=== PATIENT | female | born 1995 | race Caucasian/White ===

== ENCOUNTER 2021-05-28 17:06 | Observation (INO) | payer MEDICAID, SELFPAY ==
[2021-05-28 17:29] VITALS: BP 132/78; PULSE 125; RESP 18; TEMP 39.3; O2SAT 98
--- NOTE | 2021-05-28 17:45 | DI.RAD_ITS ---
Exam(s) XR PORTABLE CHEST AP EXAM: XR PORTABLE CHEST AP CLINICAL HISTORY: fever. TECHNIQUE: 2D digital imaging was performed. COMPARISON: No exams were available for comparison FINDINGS: Heart size is normal. The mediastinum is not widened. Lungs are clear. No infiltrates nor obvious pleural effusions. IMPRESSION: No acute pulmonary findings on this single AP portable view of the chest. DATA REPOSITORY: RADIATION DOSE DELIVERED: All CT scans at this facility use at least one of these dose optimization techniques: automated exposure control; mA and/or kV adjustment per patient size (includes targeted e xams where dose is matched to clinical indication); or iterative reconstruction.
[2021-05-28] MEDS: Normal Saline 1,000 ML 1000 ML IV ×2 (17:55→19:57)
[2021-05-28] MEDS: Acetaminophen 500 MG TAB 1000 MG PO (18:00)
[2021-05-28 18:14] LABS: Source Nasal/Nares
[2021-05-28 18:33] LABS: Lactate 1.1 mmol/L (0.6-1.4)
[2021-05-28 18:52] LABS: Bilirubin Negative (Negative); Blood Trace-intact (Negative); Clarity Cloudy (Clear); Glucose Negative (Negative); Ketones 40 mg/dL (Negative); Leukocyte Esterase Large (Negative); Nitrite Positive (Negative)
[2021-05-28 18:57] LABS: ALT 16 U/L (14-59); AST 11 U/L (15-37); Albumin 3.9 g/dL (3.4-5.0); Alkaline Phosphatase 87 U/L (46-116); Anion Gap 15.2 mmol/L (3-11); BUN 10 mg/dL (7-18); Bilirubin, Total 0.6 mg/dL (0.2-1.0); CO2 21.8 mmol/L (21.0-32.0); CREATININE 1.1 mg/dL (0.55-1.02); Chloride 100 mmol/L (98-107); Glucose 113 mg/dL (74-106); Magnesium 1.7 mg/dL (1.8-2.4); Potassium 3.2 mmol/L (3.5-5.1); Sodium 137 mmol/L (136-145); Total Protein 8.1 g/dL (6.4-8.2)
[2021-05-28 18:58] LABS: HCG Quant, Pregnancy < 1 mIU/mL (1-3)
[2021-05-28 19:05] LABS: COVID-19 PCR Negative (Negative)
[2021-05-28 19:11] LABS: Abs Immature Grans 0.09 10^3/uL (0.0-0.06); Absolute Basophil Count 0.04 10^3/uL (0.0-0.2); Absolute Lymphocyte Count 1.44 10^3/uL (1.2-3.4); Absolute Monocyte Count 2.04 10^3/uL (0.1-0.8); Absolute Neutrophil Count 15.14 10^3/uL (1.2-6.7); Basophils % 0.2; HCT 42.2 % (36.0-46.0); HGB 13.2 g/dL (11.2-15.7); Immature Grans % 0.5; Lymphocytes % 7.7; MCH 29.1 pg (27.0-33.0); MCHC 31.3 % (32.0-36.0); MCV 93.2 fL (80-95); MPV 9.9 fL (8.0-11.0); Monocytes % 10.9; Neutrophils % 80.7; Nucleated RBC 0 %; Platelet Count 275 10^3/uL (130-400); RBC 4.53 10^6/uL (3.93-5.22); RDW 12.1 % (11.7-14.6); RDW-SD 41.8 fL; WBC 18.76 10^3/uL (4.4-10.8)
[2021-05-28 19:14] LABS: Epithelial Cells Many HPF (Negative); WBC >50 HPF (0-5)
[2021-05-28 19:15] LABS: Bacteria Packed HPF (Negative); C & S Indicated? No/Sq. Contamination
--- NOTE | 2021-05-28 19:15 | ED.GENADUL_ITS ---
Discharge Plan Disposition Patient Disposition: [facility] INPATIENT Condition: Stable Discharge Details Clinical Impression: Pyelonephritis, Fever, Nausea and vomiting Admit Date/Time: 05/28/21 20:28 Admit Provider: Masood Souza Attending Provider: Masood Souza Primary Care Provider: Unknown,Unknown ED Provider: Yvrose Manzo Discharge Data Discharge Date/Time-TO BE ENTERED AT DEPARTURE: 05/28/21 21:05 Medical Decision Making <HEBER Clinton - Last Filed: 05/28/21 22:39> Given patient's recent miscarriage, I did call MEDICARE INSURANCE SPECIALIST to evaluate patient for possible endometritis, Dr. Shetty presented to the emergency room for exam She does not feel her exam is consistent with endometritis at this time Quant is negative Urinalysis is positive for infection, given temperature of 102, I suspect patient, pyelonephritis with low back pain Declines risk of sexually transmitted disease No indication for CT imaging at this time Ultrasound unavailable Please see Dr. Shetty's documentation regarding pelvic exam Initiated on ceftriaxone 2 g IV Leukocytosis, 18,000, tachycardia, 125, and first night patient positive sepsis. She is agreeable to admission Concern regarding sending patient home multifactorial including that of nausea and vomiting with persistent nausea, will repeat antiemetics Given 2 L of fluids for anion gap likely dehydration Potassium 3.2, supplemented with IV potassium patient unable to tolerate p.o. Chest x-ray does not show evidence of infectious etiology of the symptoms Medical Records Medical records reviewed: Yes I reviewed the patient's medical records. Lab Data Lab results reviewed: Yes I reviewed the patient's lab results. <Jose David Corrigan MD - Last Filed: 05/31/21 15:13> Patient seen, examined, and discussed with HEBER Manzo. I agree with treatment plan as discussed/documented. HPI <HEBER Clinton - Last Filed: 05/28/21 22:39> General Mode of arrival: ambulatory . Date/Time Provider Initiated Documentation: 05/28/21 17:19 . Limitations to Documentation: no limitations . Information obtained by: patient . HPI Narrative: This pleasant 26-year-old female presents with fever, chills, nausea, vomiting. Patient is status Spontaneous on 19 May where she was managed at [facility]. She reportedly received methotrexate and past all products of conception. She states that she had an IUD placed subsequently with confirmation via ultrasound. She states but yesterday evening she started having chills, nausea, vomiting. She also has diffuse myalgias. She states her symptoms came on abruptly. She denies any known sick contacts. She denies any cough, chest pain, shortness of breath. She had mild sore throat. Her boyfriend reportedly had strep throat last week. She denies any stiff neck or headache. She states she has some lower abdominal cramping that is exacerbated with walking. She denies any abnormal vaginal discharge. She is sexually active and monogamous with her . She denies any rashes or lesions. She denies any tick bites. She denies urinary frequency or burning. She does report some low back pain. Related Data Home Medications Medication Instructions Recorded Confirmed venlafaxine 50 mg PO DAILY 05/28/21 05/28/21 cefpodoxime 200 mg PO BID #10 tab 05/30/21 Previous Rx's Medication Instructions Recorded cefpodoxime 200 mg PO BID #10 tab 05/30/21 Allergies Allergy/AdvReac Type Severity Reaction Status Date / Time bupropion [From Wellbutrin] Allergy Hives Unverified 05/28/21 17:32 General Stated Complaint: Fever STEVEN: 3 Review of Systems <HEBER Clinton - Last Filed: 05/28/21 22:39> All systems reviewed & are unremarkable except as noted in HPI and below PFSH <HEBER Clinton - Last Filed: 05/28/21 22:39> 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 Improved symptoms with venlafaxine History of 1 spontaneous 05/20/2021. Rx with vaginal misoprostol. No complications. Social History Smoking/Tobacco Use Status: Former Tobacco Use Smoking risk assessment performed?: Yes Alcohol Intake: never Substance use type: does not use Household members: significant other and other Details: Ruslan x1.5 years Number of Children: 0 current occupation: Unemployed. Begins [employer] 06/01/2021 Do you feel safe at home: Yes Do you feel safe in your relationship?: Yes History History 1 Para 0 Hx # Term Pregnancies Multiple births Hx # Pregnancies Ectopic pregnancies AB induced Hx Number of Living Children 0 AB spontaneous 1 Exam <HEBER Clinton - Last Filed: 05/28/21 22:39> Const General: cooperative and ill appearing Eyes Sclera: sclerae normal Neck Other: No meningismus Resp Effort & Inspection: normal respiratory effort Auscultation: clear to auscultation bilaterally Cardio Other: Tachycardic, regular rhythm, no murmur GI Other: Mild lower abdominal tenderness, no rebound or guarding, no CVA tenderness Skin General skin exam: no rashes or lesions noted Neuro General: patient alert and patient oriented x3 Extrem Other: No calf swelling or tenderness appreciated Course <HEBER Clinton - Last Filed: 05/28/21 22:39> Vital Signs Vital signs: Vital Signs Temperature 39.3 C H 05/28/21 17:29 Pulse 125 H 05/28/21 17:29 Respiratory Rate 18 05/28/21 17:29 Blood Pressure 132/78 05/28/21 17:29 Pulse Oximetry 98 05/28/21 17:29 Temperature 39.3 C H 05/28/21 17:29 Temperature Source Oral 05/28/21 17:29 Pulse 125 H 05/28/21 17:29 Respiratory Rate 18 05/28/21 17:29 Respiratory Effort Non-Labored 05/28/21 17:35 Blood Pressure 132/78 05/28/21 17:29 Blood Pressure Position Sitting 05/28/21 17:29 Pulse Oximetry 98 05/28/21 17:29 Oxygen Delivery Method Room Air 05/28/21 17:29 Oxygen Flow Rate 0 05/28/21 17:29 Pain Level 8 05/28/21 17:29 Lab/Test Results Lab/Test Results: 05/28/21 18:58 Blood Blood Culture - Pending 05/28/21 18:50 Tonsil - Left Group A Streptococcus Culture - Pending 05/28/21 18:20 Blood Blood Culture - Pending Laboratory Tests Range/Units 05/28/21 05/28/21 05/28/21 18:12 18:20 18:20 WBC RBC Hgb Hct MCV MCH MCHC RDW Plt Count MPV Immature Gran % Neutrophils % Band Neutrophils % Lymphocytes % Atypical Lymphs % Monocytes % Eosinophils % Basophils % Metamyelocytes % Myelocytes % Promyelocytes % Other Cells % Nucleated RBC % Absolute Neutrophils Absolute Lymphocytes Absolute Monocytes Absolute Eosinophils Absolute Basophils RBC Morphology Polychromasia Hypochromasia Poikilocytosis Basophilic Stippling Anisocytosis Microcytosis Macrocytosis Spherocytes Tear Drop Cells Ovalocytes Stomatocytes Stout-[place] Bodies [place] Cells/Echinocytes Acanthocytes (Spur) Schistocytes VBG Lactate (0.6-1.4) mmol/L 1.1 Sodium (136-145) mmol/L 137 Potassium (3.5-5.1) mmol/L 3.2 L Chloride (98-107) mmol/L 100 Carbon Dioxide (21.0-32.0) mmol/L 21.8 Anion Gap (3-11) mmol/L 15.2 H BUN (7-18) mg/dL 10 Creatinine (0.55-1.02) mg/dL 1.1 H Estimated GFR/1.73 m2 (mL/min/1.73m2) >= 60.00 Glucose (74-106) mg/dL 113 H Calcium (8.5-10.1) mg/dL 9.0 Magnesium (1.8-2.4) mg/dL 1.7 L Total Bilirubin (0.2-1.0) mg/dL 0.6 AST (15-37) U/L 11 L ALT (14-59) U/L 16 Alkaline Phosphatase (46-116) U/L 87 Total Protein (6.4-8.2) g/dL 8.1 Albumin (3.4-5.0) g/dL 3.9 Beta HCG, Quant (1-3) mIU/mL < 1 L Urine Color (Yellow) Urine Clarity (Clear) Urine pH (5-8) Ur Specific [place] (1.005-1.025) Urine Protein (Negative) mg/dL Urine Ketones (Negative) mg/dL Urine Blood (Negative) Urine Nitrite (Negative) Urine Bilirubin (Negative) Urine Urobilinogen (Up TO 0.2) EU/dL Ur Leukocyte Esterase (Negative) Urine Glucose (Negative) mg/dL COVID-19 Source Nasal/Nares SARS-CoV-2 (PCR) (Negative) Negative Range/Units 05/28/21 05/28/21 05/28/21 18:20 18:45 18:58 WBC Cancelled 18.76 H RBC Cancelled 4.53 Hgb Cancelled 13.2 Hct Cancelled 42.2 MCV Cancelled 93.2 MCH Cancelled 29.1 MCHC Cancelled 31.3 L RDW Cancelled 12.1 Plt Count Cancelled 275 MPV Cancelled 9.9 Immature Gran % Cancelled Neutrophils % Cancelled Band Neutrophils % Cancelled Lymphocytes % Cancelled Atypical Lymphs % Cancelled Monocytes % Cancelled Eosinophils % Cancelled Basophils % Cancelled Metamyelocytes % Cancelled Myelocytes % Cancelled Promyelocytes % Cancelled Other Cells % Cancelled Nucleated RBC % Cancelled Absolute Neutrophils Cancelled Absolute Lymphocytes Cancelled Absolute Monocytes Cancelled Absolute Eosinophils Cancelled Absolute Basophils Cancelled RBC Morphology Cancelled Polychromasia Cancelled Hypochromasia Cancelled Poikilocytosis Cancelled Basophilic Stippling Cancelled Anisocytosis Cancelled Microcytosis Cancelled Macrocytosis Cancelled Spherocytes Cancelled Tear Drop Cells Cancelled Ovalocytes Cancelled Stomatocytes Cancelled Stout-[place] Bodies Cancelled [place] Cells/Echinocytes Cancelled Acanthocytes (Spur) Cancelled Schistocytes Cancelled VBG Lactate (0.6-1.4) mmol/L Sodium (136-145) mmol/L Potassium (3.5-5.1) mmol/L Chloride (98-107) mmol/L Carbon Dioxide (21.0-32.0) mmol/L Anion Gap (3-11) mmol/L BUN (7-18) mg/dL Creatinine (0.55-1.02) mg/dL Estimated GFR/1.73 m2 (mL/min/1.73m2) Glucose (74-106) mg/dL Calcium (8.5-10.1) mg/dL Magnesium (1.8-2.4) mg/dL Total Bilirubin (0.2-1.0) mg/dL AST (15-37) U/L ALT (14-59) U/L Alkaline Phosphatase (46-116) U/L Total Protein (6.4-8.2) g/dL Albumin (3.4-5.0) g/dL Beta HCG, Quant (1-3) mIU/mL Urine Color (Yellow) Yellow Urine Clarity (Clear) Cloudy Urine pH (5-8) 6.0 Ur Specific [place] (1.005-1.025) 1.020 Urine Protein (Negative) mg/dL 100 H Urine Ketones (Negative) mg/dL 40 H Urine Blood (Negative) Trace-intact H Urine Nitrite (Negative) Positive H Urine Bilirubin (Negative) Negative Urine Urobilinogen (Up TO 0.2) EU/dL 1.0 H Ur Leukocyte Esterase (Negative) Large H Urine Glucose (Negative) mg/dL Negative COVID-19 Source SARS-CoV-2 (PCR) (Negative) POC Strep Test-CHELSEY(Rapid) Start: 05/28/21 18:1 7 Freq: .Rapid Strep Test Status: Active Protocol: Document 05/28/21 18:43 MCG (Rec: 05/28/21 18:43 [facility] [place] NURSE-[id number]) Strep test-CHELSEY(Rapid)-POC POC-Strep test-CHELSEY (Rapid) Negative POC-Strep test-CHELSEY (Rapid) Negative Critical Care Time <HEBER Clinton - Last Filed: 05/28/21 22:39> Critical Care Time Critical Care Time: Yes Total Critical Care Time: 45 Attestation: Pressure medicines critical care time performed with IV antibiotics, diagnostic lab, MEDICARE INSURANCE SPECIALIST consultation, admission to hospital, IV fluid hydration, electrolyte supplementation, antiemetic control
--- NOTE | 2021-05-28 19:28 | W.GYNCONSULT ---
Date of service: 05/28/21 Time of Service: 19:28 Assessment and Plan Assessment and plan (1) History of 1 spontaneous : Status: Acute Assessment and plan: Her history would indicate that she had a recent pelvic ultrasound that showed an IUD that was in place and no evidence of retained products of conception. Her exam is not consistent with septic or PID. If there were endometritis she would be experiencing uterine bleeding. (2) Fever: Status: Acute Assessment and plan: Bimanual exam was exam was benign. No evidence of intrauterine infection. Doubt pelvic inflammatory disease. IUD placement is rarely associated with pelvic inflammatory disease. (3) Nausea and vomiting: Status: Acute (4) IUD (intrauterine device) in place: Status: Acute History of Present Illness History of Present Illness Chief Complaint: Fever, N/V. Narrative: Patient is a 26-year-old G1, P0 female who presented to the [facility] emergency department with report of subjective fever for the last 48 hours nausea and vomiting with accompanying headache also for the last 48 hours. She reports being diagnosed by u/s at [facility] on 05/20/2021 with a missed AB at 9 weeks estimated gestational age. Patient was offered a D&C but declined and had intravaginal misoprostol which resulted in the passage of tissue 24 hours later. Is unclear to me if she received prophylactic doxycycline at the time of the SAB. Shortly thereafter a ParaGard IUD was inserted. A urine and serum test was negative at the time of insertion. She was then recently seen for a IUD string check and strings were not visible. She reports a pelvic ultrasound being performed which showed the IUD in the correct position. Consults Consult date: 05/28/21 Requesting physician: Yvrose Manzo Review of Systems Constitutional Constitutional: Reports chills, Reports fatigue, Reports headache(s) (Whenever she vomits she develops a headache) and Reports malaise (X 48 hours) ENT Ears, Nose, Mouth, and Throat: Reports headache(s) (Whenever she vomits she develops a headache) Cardiovascular Cardiovascular: Reports system reviewed and no additional complaints, except as documented Respiratory Respiratory: Reports cough (Nonproductive. No URI symptoms.) Gastrointestinal Gastrointestinal: Denies change in bowel habits, Denies diarrhea, Reports nausea, Reports vomiting and Denies hematemesis Genitourinary Genitourinary: Reports amenorrhea (No menses since the SAB. Light spotting after IUD was placed), Denies dysuria, Reports pelvic pain, Denies vaginal discharge, Denies vaginal odor and Denies vaginal pruritus Musculoskeletal Musculoskeletal: Reports back pain (Nonspecific. 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 Improved symptoms with venlafaxine History of 1 spontaneous 05/20/2021. Rx with vaginal misoprostol. No complications. Social History (Updated 05/28/21 @ 19:42 by Liss Shetty MD) Smoking/Tobacco Use Status: Former Tobacco Use Smoking risk assessment performed?: Yes Alcohol Intake: never Substance use type: does not use Household members: significant other and other Details: Ruslan x1.5 years Number of Children: 0 current occupation: Unemployed. Begins [employer] 06/01/2021 Do you feel safe at home: Yes Do you feel safe in your relationship?: Yes Female Reproductive History Menstrual control method: copper IUCD (Placed 05/2021) History History 1 Para 0 Hx # Term Pregnancies Multiple births Hx # Pregnancies Ectopic pregnancies AB induced Hx Number of Living Children 0 AB spontaneous 1 Exam Narrative Exam Narrative: Patient lying semi-Fowlers on the gurney in ED. Const General: ill appearing Nutritional Appearance: average body habitus Orientation: alert, awake and oriented x3 (She is a good historian.) Neck Neck: normal visual inspection Cardio Rate: regular rate Rhythm: regular rhythm GI Inspection: normal to inspection and non-distended Palpation: soft, no hepatosplenomegaly, no guarding, no masses and tender (Diffusely tender. No focal tenderness) Percussion: normal to percussion (No flank tenderness) Rectal Exam - female: deferred General: bladder normal to palpation External Female Exam: normal external appearance Bimanual Exam- Vagina & Uterus: normal bimanual exam, normal palpation, uterine size normal (Not enlarged. Smooth mobile), bladder normal to palpation and normal palpation (No CMT) Bimanual Exam- Adnexa, other: normal adnexae, adnexae mobile, no masses, non-tender and apex supported Other: No vaginal discharge noted. The cervix is closed and long. Overall a very benign pelvic exam Back/Spine/Pelvis Back: no CVA tenderness and back tenderness (Once again diffuse) Pelvis: no pain with anterior-posterior compression and no pain with lateral compression Extrem General: normal to inspection Psych Appearance: grossly normal Mental Status: mental status grossly normal Speech and Movement: speech and movement normal Mood: congruent mood Affect: normal affect Attitude: cooperative Thought Process: normal Thought Content: normal Insight: insight good Judgment: judgment good Results Last Vital Signs Temp 102.7 F H 05/28/21 17:29 Pulse 125 H 05/28/21 17:29 Resp 18 05/28/21 17:29 BP 132/78 05/28/21 17:29 Pulse Ox 98 05/28/21 17:29 Labs Result diagrams: 05/28/21 18:58 05/28/21 18:20 Labs: Laboratory Results - last 24 hr 05/28/21 05/28/21 05/28/21 18:12 18:20 18:20 WBC RBC Hgb Hct MCV MCH MCHC RDW Plt Count MPV Immature Gran % Neutrophils % Band Neutrophils % Lymphocytes % Atypical Lymphs % Monocytes % Eosinophils % Basophils % Metamyelocytes % Myelocytes % Promyelocytes % Other Cells % Nucleated RBC % Absolute Neutrophils Absolute Lymphocytes Absolute Monocytes Absolute Eosinophils Absolute Basophils RBC Morphology Polychromasia Hypochromasia Poikilocytosis Basophilic Stippling Anisocytosis Microcytosis Macrocytosis Spherocytes Tear Drop Cells Ovalocytes Stomatocytes Stout-[place] Bodies [place] Cells/Echinocytes Acanthocytes (Spur) Schistocytes VBG Lactate 1.1 Sodium 137 Potassium 3.2 L Chloride 100 Carbon Dioxide 21.8 Anion Gap 15.2 H BUN 10 Creatinine 1.1 H Estimated GFR/1.73 m2 >= 60.00 Glucose 113 H Calcium 9.0 Magnesium 1.7 L Total Bilirubin 0.6 AST 11 L ALT 16 Alkaline Phosphatase 87 Total Protein 8.1 Albumin 3.9 Beta HCG, Quant < 1 L Urine Color Urine Clarity Urine pH Ur Specific [place] Urine Protein Urine Ketones Urine Blood Urine Nitrite Urine Bilirubin Urine Urobilinogen Ur Leukocyte Esterase Urine RBC Urine WBC Ur Epithelial Cells Urine Crystals Urine Bacteria Urine Mucus Ur Culture Indicated? Urine Glucose COVID-19 Source Nasal/Nares SARS-CoV-2 (PCR) Negative 05/28/21 05/28/21 05/28/21 18:20 18:45 18:58 WBC Cancelled 18.76 H RBC Cancelled 4.53 Hgb Cancelled 13.2 Hct Cancelled 42.2 MCV Cancelled 93.2 MCH Cancelled 29.1 MCHC Cancelled 31.3 L RDW Cancelled 12.1 Plt Count Cancelled 275 MPV Cancelled 9.9 Immature Gran % Cancelled Neutrophils % Cancelled Band Neutrophils % Cancelled Lymphocytes % Cancelled Atypical Lymphs % Cancelled Monocytes % Cancelled Eosinophils % Cancelled Basophils % Cancelled Metamyelocytes % Cancelled Myelocytes % Cancelled Promyelocytes % Cancelled Other Cells % Cancelled Nucleated RBC % Cancelled Absolute Neutrophils Cancelled Absolute Lymphocytes Cancelled Absolute Monocytes Cancelled Absolute Eosinophils Cancelled Absolute Basophils Cancelled RBC Morphology Cancelled Polychromasia Cancelled Hypochromasia Cancelled Poikilocytosis Cancelled Basophilic Stippling Cancelled Anisocytosis Cancelled Microcytosis Cancelled Macrocytosis Cancelled Spherocytes Cancelled Tear Drop Cells Cancelled Ovalocytes Cancelled Stomatocytes Cancelled Stout-[place] Bodies Cancelled [place] Cells/Echinocytes Cancelled Acanthocytes (Spur) Cancelled Schistocytes Cancelled VBG Lactate Sodium Potassium Chloride Carbon Dioxide Anion Gap BUN Creatinine Estimated GFR/1.73 m2 Glucose Calcium Magnesium Total Bilirubin AST ALT Alkaline Phosphatase Total Protein Albumin Beta HCG, Quant Urine Color Yellow Urine Clarity Cloudy Urine pH 6.0 Ur Specific [place] 1.020 Urine Protein 100 H Urine Ketones 40 H Urine Blood Trace-intact H Urine Nitrite Positive H Urine Bilirubin Negative Urine Urobilinogen 1.0 H Ur Leukocyte Esterase Large H Urine RBC Not Applicable Urine WBC >50 H Ur Epithelial Cells Many Urine Crystals Not Applicable Urine Bacteria Packed Urine Mucus Not Applicable Ur Culture Indicated? No/Sq. Contamination Urine Glucose Negative COVID-19 Source SARS-CoV-2 (PCR)
[2021-05-28 19:30] LABS: Diff Comment Agrees w/ Instrument; RBC Morphology Normal
[2021-05-28 19:39] VITALS: BP 119/79; PULSE 105; RESP 16; TEMP 37.8; O2SAT 95
--- NOTE | 2021-05-28 19:44 | DI.VRAD_ITS ---
PROCEDURE INFORMATION: Exam: XR Chest Exam date and time: 05/28/2021 5:54 PM Age: 26 years old Clinical indication: Fever TECHNIQUE: Imaging protocol: XR of the chest. Views: 1 view. COMPARISON: No relevant prior studies available. FINDINGS: Lungs: Unremarkable. No consolidation. Pleural spaces: Unremarkable. No pleural effusion. No pneumothorax. Heart/Mediastinum: Unremarkable. No cardiomegaly. Bones/joints: Unremarkable. IMPRESSION: No acute findings. Dictated and Authenticated by: Adam Cates MD. Ordering:JOSE Frances MD
[2021-05-28] MEDS: cefTRIAXone 2 GM/50 ML BAG IVPB (19:56)
[2021-05-28] MEDS: Ondansetron 4 MG/2 ML VIAL IVP (19:57)
[2021-05-28] MEDS: Metoclopramide 10 MG/2 ML VIAL IVP (19:57)
--- NOTE | 2021-05-28 20:16 | HPE_ITS ---
Date of service: 05/28/21 Time of Service: 20:16 Assessment and Plan Assessment and plan (1) Pyelonephritis: Status: Acute Assessment and plan: With pyuria and systemic s/s I think we call pyelonephritis. Hemodynamics satisfactory. I do not see that imaging is required at present. Will continue empiric Rocephin pending cxx, and otherwise will provide IVF and general supportive measures with analgesics and antiemetics as needed. History of Present Illness History of Present Illness Chief Complaint: fever Narrative: 26 female one week s/p miscarriage at 9 weeks gestational age, had IUD inserted at the time. Comes in with 2 days of lower back pain, and the one day7 of vague lower abdominal pain, nausea and vomiting, along with fever and myalgias. In ER findings of note for initial temp 39.3, leukocytosis (18), K 3.2, and pyuria (packed field). RADIOGRAPHER CARDIAC CATHETERIZATION was consulted with benign pelvic exam and deems this not to be of gynecological source. Patient was given Rocephin, Zofran, Reglan, APAP and IVF along with 20 KCl. She is admitted for further management. 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 Improved symptoms with venlafaxine History of 1 spontaneous 05/20/2021. Rx with vaginal misoprostol. No complications. Social History Smoking/Tobacco Use Status: Former Tobacco Use Smoking risk assessment performed?: Yes Alcohol Intake: never Substance use type: does not use Household members: significant other and other Details: Ruslan x1.5 years Number of Children: 0 current occupation: Unemployed. [employer]ins [employer] 06/01/2021 Do you feel safe at home: Yes Do you feel safe in your relationship?: Yes Female Reproductive History Menstrual control method: copper IUCD (Placed 05/2021) History History 1 Para 0 Hx # Term Pregnancies Multiple births Hx # Pregnancies Ectopic pregnancies AB induced Hx Number of Living Children 0 AB spontaneous 1 Meds Allergies and Home Medications Allergies Allergy/AdvReac Type Severity Reaction Status Date / Time bupropion [From Wellbutrin] Allergy Hives Unverified 05/28/21 17:32 Home Medications Medication Instructions Recorded Confirmed Type venlafaxine [Effexor] 50 mg PO DAILY 05/28/21 05/28/21 History Exam Narrative Exam Narrative: 119/79, 105, 37.8 (39.3 max), 16, 95% RA. HEENT atraumatic; neck supple; lungs clear; heart tachy/regular; abdomen soft, minimal diffuse tenderness w/o rebound; back w/o CVAT; extremities w/o edema; neuro Ox3, moves all 4s. Results Labs Result diagrams: 05/28/21 18:58 05/28/21 18:20 Labs: Laboratory Results - last 24 hr 05/28/21 05/28/21 05/28/21 18:12 18:20 18:20 WBC RBC Hgb Hct MCV MCH MCHC RDW Plt Count MPV Immature Gran % Neutrophils % Band Neutrophils % Lymphocytes % Atypical Lymphs % Monocytes % Eosinophils % Basophils % Metamyelocytes % Myelocytes % Promyelocytes % Other Cells % Nucleated RBC % Absolute Neutrophils Absolute Lymphocytes Absolute Monocytes Absolute Eosinophils Absolute Basophils RBC Morphology Polychromasia Hypochromasia Poikilocytosis Basophilic Stippling Anisocytosis Microcytosis Macrocytosis Spherocytes Tear Drop Cells Ovalocytes Stomatocytes [place] Bodies [place] Cells/Echinocytes Acanthocytes (Spur) Schistocytes VBG Lactate 1.1 Sodium 137 Potassium 3.2 L Chloride 100 Carbon Dioxide 21.8 Anion Gap 15.2 H BUN 10 Creatinine 1.1 H Estimated GFR/1.73 m2 >= 60.00 Glucose 113 H Calcium 9.0 Magnesium 1.7 L Total Bilirubin 0.6 AST 11 L ALT 16 Alkaline Phosphatase 87 Total Protein 8.1 Albumin 3.9 Beta HCG, Quant < 1 L Urine Color Urine Clarity Urine pH Ur Specific [place] Urine Protein Urine Ketones Urine Blood Urine Nitrite Urine Bilirubin Urine Urobilinogen Ur Leukocyte Esterase Urine RBC Urine WBC Ur Epithelial Cells Urine Crystals Urine Bacteria Urine Mucus Ur Culture Indicated? Urine Glucose COVID-19 Source Nasal/Nares SARS-CoV-2 (PCR) Negative Patient ABO/Rh Antibody Screen 05/28/21 05/28/21 05/28/21 18:20 18:45 18:58 WBC Cancelled RBC Cancelled Hgb Cancelled Hct Cancelled MCV Cancelled MCH Cancelled MCHC Cancelled RDW Cancelled Plt Count Cancelled MPV Cancelled Immature Gran % Cancelled Neutrophils % Cancelled Band Neutrophils % Cancelled Lymphocytes % Cancelled Atypical Lymphs % Cancelled Monocytes % Cancelled Eosinophils % Cancelled Basophils % Cancelled Metamyelocytes % Cancelled Myelocytes % Cancelled Promyelocytes % Cancelled Other Cells % Cancelled Nucleated RBC % Cancelled Absolute Neutrophils Cancelled Absolute Lymphocytes Cancelled Absolute Monocytes Cancelled Absolute Eosinophils Cancelled Absolute Basophils Cancelled RBC Morphology Cancelled Polychromasia Cancelled Hypochromasia Cancelled Poikilocytosis Cancelled Basophilic Stippling Cancelled Anisocytosis Cancelled Microcytosis Cancelled Macrocytosis Cancelled Spherocytes Cancelled Tear Drop Cells Cancelled Ovalocytes Cancelled Stomatocytes Cancelled [place] Bodies Cancelled [place] Cells/Echinocytes Cancelled Acanthocytes (Spur) Cancelled Schistocytes Cancelled VBG Lactate Sodium Potassium Chloride Carbon Dioxide Anion Gap BUN Creatinine Estimated GFR/1.73 m2 Glucose Calcium Magnesium Total Bilirubin AST ALT Alkaline Phosphatase Total Protein Albumin Beta HCG, Quant Urine Color Yellow Urine Clarity Cloudy Urine pH 6.0 Ur Specific [place] 1.020 Urine Protein 100 H Urine Ketones 40 H Urine Blood Trace-intact H Urine Nitrite Positive H Urine Bilirubin Negative Urine Urobilinogen 1.0 H Ur Leukocyte Esterase Large H Urine RBC Not Applicable Urine WBC >50 H Ur Epithelial Cells Many Urine Crystals Not Applicable Urine Bacteria Packed Urine Mucus Not Applicable Ur Culture Indicated? No/Sq. Contamination Urine Glucose Negative COVID-19 Source SARS-CoV-2 (PCR) Patient ABO/Rh A Positive Antibody Screen NEGATIVE 05/28/21 18:58 WBC 18.76 H RBC 4.53 Hgb 13.2 Hct 42.2 MCV 93.2 MCH 29.1 MCHC 31.3 L RDW 12.1 Plt Count 275 MPV 9.9 Immature Gran % 0.5 Neutrophils % 80.7 Band Neutrophils % Lymphocytes % 7.7 Atypical Lymphs % Monocytes % 10.9 Eosinophils % 0.0 Basophils % 0.2 Metamyelocytes % Myelocytes % Promyelocytes % Other Cells % Nucleated RBC % 0 Absolute Neutrophils 15.14 H Absolute Lymphocytes 1.44 Absolute Monocytes 2.04 H Absolute Eosinophils 0.00 Absolute Basophils 0.04 RBC Morphology Normal Polychromasia Hypochromasia Poikilocytosis Basophilic Stippling Anisocytosis Microcytosis Macrocytosis Spherocytes Tear Drop Cells Ovalocytes Stomatocytes [place] Bodies [place] Cells/Echinocytes Acanthocytes (Spur) Schistocytes VBG Lactate Sodium Potassium Chloride Carbon Dioxide Anion Gap BUN Creatinine Estimated GFR/1.73 m2 Glucose Calcium Magnesium Total Bilirubin AST ALT Alkaline Phosphatase Total Protein Albumin Beta HCG, Quant Urine Color Urine Clarity Urine pH Ur Specific [place] Urine Protein Urine Ketones Urine Blood Urine Nitrite Urine Bilirubin Urine Urobilinogen Ur Leukocyte Esterase Urine RBC Urine WBC Ur Epithelial Cells Urine Crystals Urine Bacteria Urine Mucus Ur Culture Indicated? Urine Glucose COVID-19 Source SARS-CoV-2 (PCR) Patient ABO/Rh Antibody Screen Last Vital Signs Temp 37.8 C H 05/28/21 19:39 Pulse 105 H 05/28/21 19:39 Resp 16 05/28/21 19:39 BP 119/79 05/28/21 19:39 Pulse Ox 95 05/28/21 19:39
[2021-05-28 21:29] VITALS: BP 115/68; PULSE 95; RESP 17; TEMP 37.6; O2SAT 98
[2021-05-28] MEDS: Ketorolac 30 MG/ML VIAL IVP (21:40)
[2021-05-28] MEDS: POTASSIUM CHLORIDE/0.9% NACL 1,000 ML 150 MEQ IV (21:40)
[2021-05-28] MEDS: POTASSIUM CHLORIDE 20 MEQ/100 ML BAG 50 MEQ IVPB (22:09)
[2021-05-28] MEDS: MORPHine 4 MG/ML SYR IVP (22:14)
--- NOTE | 2021-05-29 | DI.CT_ITS ---
Exam(s) CT ABDOMEN PELVIS WO EXAM: CT ABDOMEN PELVIS WO CLINICAL HISTORY: renal cortical cysts. TECHNIQUE: Imaging Protocol: Axial computed tomography images with coronal and sagittal reformatted images were created and reviewed. Oral: no COMPARISON: CR,XR XR PORTABLE CHEST AP from 05/28/2021 CR,XR XR PORTABLE CHEST AP from 05/28/2021 US US RENAL from 05/29/2021 FINDINGS: ABDOMEN: Lung Bases: Areas of atelectasis versus infiltrate at the bilateral lung bases. No effusions. Liver: Normal density. No measurable mass. Gallbladder and biliary tract: No radiodense calculus or dilation. Pancreas: Normal density, no abnormal calcifications or inflammatory process. Spleen: Normal. Small rounded accessory spleen. Kidneys: Limited evaluation without IV contrast. Minimal stranding at lower pole of left kidney. Se veral right renal parenchymal cysts, better seen on ultrasound. Normal size, contour and axis. No ra diodense stones or obstructive uropathy. No suspicious masses seen. Adrenal glands: No masses seen. Lymph nodes: Within normal limits. Abdominal Aorta: Abdominal portion non-dilated. PELVIS: Bladder: Symmetric distention, no gross wall thickening. Bowel: No obstruction or bowel wall thickening. Appendix normal. Normal quantity of stool. Peritoneal cavity: No ascites, collection or mesenteric inflammatory response. Reproductive organs: Within normal limits. IUD. Dominant follicle left ovary. Bones: Within normal limits. IMPRESSION: Bibasilar infiltrates versus atelectasis. Right renal cysts. No evidence of stones or hydronephrosi s. Minimal nonspecific stranding at the lower pole of the right kidney. RADIATION DOSE DELIVERED: 960.57mGy.cm Total DLP DATA REPOSITORY: All CT scans at this facility are submitted to the National Radiology Data Registry (NRDR) Dose Index Registry (DIR) with the [employer] (A[employer]). RADIATION OPTIMIZATION: All CT scans at this facility use at least one of these dose optimization te chniques: automated exposure control; mA and/or kV adjustment per patient size (includes targeted exa ms where dose is matched to clinical indication); or iterative reconstruction.
--- NOTE | 2021-05-29 | DI.US_ITS ---
Exam(s) US RENAL EXAM: US RENAL CLINICAL HISTORY: pyelonephritis TECHNIQUE: Ultrasound of both kidneys performed using standard protocol. COMPARISON: CR,XR XR PORTABLE CHEST AP from 05/28/2021 CR,XR XR PORTABLE CHEST AP from 05/28/2021 FINDINGS: RIGHT KIDNEY: Measures 12.4 cm in length. There are 3 cortical cysts in the right kidney noted. The largest of the se measures 2.3 cm by 2.1 cm. Normal cortical thickness and corticomedullary differentiation .No ron id masses There also few small echogenic foci in the right kidney, the largest measuring 5 millimeters and prob ably representing nonobstructive calculi.There is no hydronephrosis. LEFT KIDNEY: Measures 10.8 cm in length. No cysts evident. Normal cortical thickness and corticomedullary differe ntiaion. No solids masses. No intrarenal calculi nor hydonephrosis. There is a round 1 point 8 x 1.8 cm density adjacent to the left kidney, intimately associated with t he inferior aspect of the spleen. This is probably a benign splenule. URINARY BLADDER: Prevoid volume is 283 cc Postvoid volume is 3 cc No evidence of bladder mass nor diverticuli. Ureterovesical jets: Both identified and appear symmetrical IMPRESSION: 1. There are 3 benign cortical cysts in the right kidney, the largest measuring 23 x 21 millimeters. There also a few small echogenic foci in the right kidney which may be nonobstructive calculi. The re is no hydronephrosis on either side. 2. No obvious mass in the urinary bladder. Bladder appears to empty adequately. DATA REPOSITORY:
[2021-05-29] MEDS: ACETAMINOPHEN 1,000 MG/100 ML BTL 400 MG IVPB ×2 (02:45→09:55)
[2021-05-29] MEDS: POTASSIUM CHLORIDE/0.9% NACL 1,000 ML 150 MEQ IV (05:54)
[2021-05-29 06:27] LABS: HCT 40.2 % (36.0-46.0); HGB 12.6 g/dL (11.2-15.7); MCH 29.6 pg (27.0-33.0); MCHC 31.3 % (32.0-36.0); MCV 94.6 fL (80-95); MPV 10.1 fL (8.0-11.0); Platelet Count 209 10^3/uL (130-400); RBC 4.25 10^6/uL (3.93-5.22); RDW 12.3 % (11.7-14.6); WBC 14.09 10^3/uL (4.4-10.8)
[2021-05-29] MEDS: Ketorolac 30 MG/ML VIAL IVP ×2 (06:30→15:27)
[2021-05-29 06:33] LABS: Anion Gap 9.5 mmol/L (3-11); BUN 6 mg/dL (7-18); CO2 21.5 mmol/L (21.0-32.0); Calcium 8.3 mg/dL (8.5-10.1); Chloride 110 mmol/L (98-107); Glucose 88 mg/dL (74-106); Potassium 4.1 mmol/L (3.5-5.1); Sodium 141 mmol/L (136-145)
[2021-05-29] MEDS: Venlafaxine 50 MG TAB PO (09:11)
[2021-05-29] MEDS: Magnesium Oxide 400 MG TAB PO (09:12)
[2021-05-29 09:14] VITALS: BP 103/67; PULSE 106; RESP 18; TEMP 36.9; O2SAT 95
[2021-05-29] MEDS: Normal Saline Flush 10 ML SYR IVP ×3 (10:57→20:03)
[2021-05-29] MEDS: Ondansetron 4 MG/2 ML VIAL IVP ×2 (10:57→20:03)
[2021-05-29 11:26] VITALS: BP 106/70; PULSE 95; RESP 16; TEMP 36.6; O2SAT 96
--- NOTE | 2021-05-29 12:21 | PHA.REVIEW ---
Pharmacy Admission Review - Admission Clinical Review (Last Reviewed 05/28/21 @ 20:23 by Masood Souza MD) Pyelonephritis (Acute) IUD (intrauterine device) in place (Acute) Nausea and vomiting (Acute) Fever (Acute) History of 1 spontaneous (Acute) bupropion [From Wellbutrin] Allergy (Unverified 05/28/21 17:32) Hives Resuscitation Status Full Code Height 5 ft 3 in Weight 78.6 kg - Renal Dosing Renal Dosing: BUN 6 mg/dL (7-18) L 05/29/21 06:10 Creatinine 1.0 mg/dL (0.55-1.02) 05/29/21 06:10 Medications needing adjustments: Reviewed (Crcl ~71.75 mL/min current meds okay.) - Anticoagulation Anticoagulation: Hgb 12.6 g/dL (11.2-15.7) 05/29/21 06:10 Hct 40.2 % (36.0-46.0) 05/29/21 06:10 Plt Count 209 10^3/uL (130-400) 05/29/21 06:10 Creatinine 1.0 mg/dL (0.55-1.02) 05/29/21 06:10 DVT Prophylaxis: N/A Therapeutic Anticoagulation: N/A - Opiate Usage Evaluate Pain Scale/Pains Meds: Reviewed Scheduled Bowel Reg ordered if on Opiates?: No (will mention to provider) - Relevant Labs Sodium 141 mmol/L (136-145) 05/29/21 06:10 Potassium 4.1 mmol/L (3.5-5.1) D 05/29/21 06:10 Chloride 110 mmol/L (98-107) H 05/29/21 06:10 Magnesium 1.7 mg/dL (1.8-2.4) L 05/28/21 18:20 Electrolytes, C-Reactive P, ESR: Reviewed (PO mag replacement ordered) - DM Control DM Control: Glucose 88 mg/dL (74-106) 05/29/21 06:10 Insulin Dosing: N/A - Heart Failure/NM EF%, CHRISTINA's, B-Blockers, Diuretics: N/A - BP Control BP Control: Blood Pressure 106/70 Blood Pressure 103/67 If elevated: N/A - Qtc Review If Elevated: N/A - IV to PO Switch IV Medications: Intervened (Will ask provider about changing acetaminophen from IV to PO as pt is taking other PO meds.) - Home Meds Home Med List reviewed: Reviewed - Current meds Current Medication Order Review: Intervened (Changed ceftriaxone from an admix to a premix.) - Comments Comments/Follow Ups: Watch VS, mag, labs, for culture results and for med changes (IV to PO, need of BM meds) Antibiotic Activity - Pharmacy Antibiotic Review Pharmacy Antibiotic Activity: Reviewed, no change (ceftriaxone continues (day 2 starts this evening). Blood and strep cultures pending.)
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
[2021-05-29] MEDS: Normal Saline 1,000 ML 100 ML IV (14:16)
[2021-05-29] MEDS: Acetaminophen 325 MG TAB 650 MG PO (15:26)
[2021-05-29 15:30] VITALS: BP 119/79; PULSE 90; RESP 18; TEMP 36.6; O2SAT 99
--- NOTE | 2021-05-29 15:35 | W.UROLOGYCON ---
Date of service: 05/29/21 Time of Service: 16:06 Assessment and Plan Assessment and plan (1) Renal cyst, acquired, right: Status: Acute Assessment and plan: Simple cysts are quite common and can be present in up to 70% of adults. They have essentially no malignant potential and do not require any specific follow-up or repeat imaging. Cysts that have calcifications or internal septae (complex cysts) do have malignant potential and are generally followed with serial imaging studies. Of the ultrasound findings, the possibility of kidney stones on the right could be better evaluated with a noncontrast CT scan. History of Present Illness History of Present Illness Chief Complaint: Renal cysts Narrative: This is a 26-year-old woman who presented to our emergency room with abdominal pain and fevers. She had a voided urine sample that showed many epithelial cells, many white cells and many bacteria. No urine culture was obtained, but she was diagnosed with pyelonephritis based on her clinical presentation. She then had a renal ultrasound which demonstrated multiple cysts. I have been asked to see her for recommendation regarding these cysts. She tells me that her discomfort has improved compared to on admission. The patient states that her discomfort is not in any 1 location, but is more diffuse across the abdomen and extends up toward her chest. She has no known history of kidney stones and no known family history of stones. She is not aware of any previous kidney infections. She has not had any prior urologic surgery. 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 Improved symptoms with venlafaxine History of 1 spontaneous 05/20/2021. Rx with vaginal misoprostol. No complications. Social History Smoking/Tobacco Use Status: Former Tobacco Use Smoking risk assessment performed?: Yes Alcohol Intake: never Substance use type: does not use Household members: significant other and other Details: Ruslan x1.5 years Number of Children: 0 current occupation: Unemployed. Begins [employer] 06/01/2021 Do you feel safe at home: Yes Do you feel safe in your relationship?: Yes Female Reproductive History Menstrual control method: copper IUCD (Placed 05/2021) History History 1 Para 0 Hx # Term Pregnancies Multiple births Hx # Pregnancies Ectopic pregnancies AB induced Hx Number of Living Children 0 AB spontaneous 1 Exam Narrative Exam Narrative: She does not appear to septic or toxic Her vital signs are documented elsewhere There is no guarding or rebound tenderness on her abdomen. No peritoneal signs are found She is awake and alert I reviewed her urinalysis in the computer system. The original UA was packed with epithelial cells along with the white blood cells and bacteria, so it may have been a skin contaminant. No straight cath urine was obtained. A urine culture was never obtained. Her blood cultures are pending. I reviewed her renal ultrasound on the PACS system. The cysts on the right all appear to be simple cysts. I see no hydronephrosis. Both ureteral jets are seen. There is a question of nonobstructing renal stones on the right side. Results Last Vital Signs Temp 36.6 C 05/29/21 11:26 Pulse 95 H 05/29/21 11:26 Resp 16 05/29/21 11:26 BP 106/70 05/29/21 11:26 Pulse Ox 96 05/29/21 11:26 Labs Result diagrams: 05/30/21 06:30 05/30/21 06:30 Labs: Laboratory Results - last 24 hr 05/28/21 05/28/21 05/28/21 18:12 18:20 18:20 WBC RBC Hgb Hct MCV MCH MCHC RDW Plt Count MPV Immature Gran % Neutrophils % Band Neutrophils % Lymphocytes % Atypical Lymphs % Monocytes % Eosinophils % Basophils % Metamyelocytes % Myelocytes % Promyelocytes % Other Cells % Nucleated RBC % Absolute Neutrophils Absolute Lymphocytes Absolute Monocytes Absolute Eosinophils Absolute Basophils RBC Morphology Polychromasia Hypochromasia Poikilocytosis Basophilic Stippling Anisocytosis Microcytosis Macrocytosis Spherocytes Tear Drop Cells Ovalocytes Stomatocytes [place] Bodies [place] Cells/Echinocytes Acanthocytes (Spur) Schistocytes VBG Lactate 1.1 Sodium 137 Potassium 3.2 L Chloride 100 Carbon Dioxide 21.8 Anion Gap 15.2 H BUN 10 Creatinine 1.1 H Estimated GFR/1.73 m2 >= 60.00 Glucose 113 H Calcium 9.0 Magnesium 1.7 L Total Bilirubin 0.6 AST 11 L ALT 16 Alkaline Phosphatase 87 Total Protein 8.1 Albumin 3.9 Beta HCG, Quant < 1 L Urine Color Urine Clarity Urine pH Ur Specific [place] Urine Protein Urine Ketones Urine Blood Urine Nitrite Urine Bilirubin Urine Urobilinogen Ur Leukocyte Esterase Urine RBC Urine WBC Ur Epithelial Cells Urine Crystals Urine Bacteria Urine Mucus Ur Culture Indicated? Urine Glucose COVID-19 Source Nasal/Nares SARS-CoV-2 (PCR) Negative Patient ABO/Rh Antibody Screen 05/28/21 05/28/21 05/28/21 18:20 18:45 18:58 WBC Cancelled RBC Cancelled Hgb Cancelled Hct Cancelled MCV Cancelled MCH Cancelled MCHC Cancelled RDW Cancelled Plt Count Cancelled MPV Cancelled Immature Gran % Cancelled Neutrophils % Cancelled Band Neutrophils % Cancelled Lymphocytes % Cancelled Atypical Lymphs % Cancelled Monocytes % Cancelled Eosinophils % Cancelled Basophils % Cancelled Metamyelocytes % Cancelled Myelocytes % Cancelled Promyelocytes % Cancelled Other Cells % Cancelled Nucleated RBC % Cancelled Absolute Neutrophils Cancelled Absolute Lymphocytes Cancelled Absolute Monocytes Cancelled Absolute Eosinophils Cancelled Absolute Basophils Cancelled RBC Morphology Cancelled Polychromasia Cancelled Hypochromasia Cancelled Poikilocytosis Cancelled Basophilic Stippling Cancelled Anisocytosis Cancelled Microcytosis Cancelled Macrocytosis Cancelled Spherocytes Cancelled Tear Drop Cells Cancelled Ovalocytes Cancelled Stomatocytes Cancelled [place] Bodies Cancelled [place] Cells/Echinocytes Cancelled Acanthocytes (Spur) Cancelled Schistocytes Cancelled VBG Lactate Sodium Potassium Chloride Carbon Dioxide Anion Gap BUN Creatinine Estimated GFR/1.73 m2 Glucose Calcium Magnesium Total Bilirubin AST ALT Alkaline Phosphatase Total Protein Albumin Beta HCG, Quant Urine Color Yellow Urine Clarity Cloudy Urine pH 6.0 Ur Specific [place] 1.020 Urine Protein 100 H Urine Ketones 40 H Urine Blood Trace-intact H Urine Nitrite Positive H Urine Bilirubin Negative Urine Urobilinogen 1.0 H Ur Leukocyte Esterase Large H Urine RBC Not Applicable Urine WBC >50 H Ur Epithelial Cells Many Urine Crystals Not Applicable Urine Bacteria Packed Urine Mucus Not Applicable Ur Culture Indicated? No/Sq. Contamination Urine Glucose Negative COVID-19 Source SARS-CoV-2 (PCR) Patient ABO/Rh A Positive Antibody Screen NEGATIVE 05/28/21 05/29/21 05/29/21 18:58 06:10 06:10 WBC 18.76 H 14.09 H RBC 4.53 4.25 Hgb 13.2 12.6 Hct 42.2 40.2 MCV 93.2 94.6 MCH 29.1 29.6 MCHC 31.3 L 31.3 L RDW 12.1 12.3 Plt Count 275 209 MPV 9.9 10.1 Immature Gran % 0.5 Neutrophils % 80.7 Band Neutrophils % Lymphocytes % 7.7 Atypical Lymphs % Monocytes % 10.9 Eosinophils % 0.0 Basophils % 0.2 Metamyelocytes % Myelocytes % Promyelocytes % Other Cells % Nucleated RBC % 0 Absolute Neutrophils 15.14 H Absolute Lymphocytes 1.44 Absolute Monocytes 2.04 H Absolute Eosinophils 0.00 Absolute Basophils 0.04 RBC Morphology Normal Polychromasia Hypochromasia Poikilocytosis Basophilic Stippling Anisocytosis Microcytosis Macrocytosis Spherocytes Tear Drop Cells Ovalocytes Stomatocytes [place] Bodies [place] Cells/Echinocytes Acanthocytes (Spur) Schistocytes VBG Lactate Sodium 141 Potassium 4.1 D Chloride 110 H Carbon Dioxide 21.5 Anion Gap 9.5 BUN 6 L Creatinine 1.0 Estimated GFR/1.73 m2 >= 60.00 Glucose 88 Calcium 8.3 L Magnesium Total Bilirubin AST ALT Alkaline Phosphatase Total Protein Albumin Beta HCG, Quant Urine Color Urine Clarity Urine pH Ur Specific [place] Urine Protein Urine Ketones Urine Blood Urine Nitrite Urine Bilirubin Urine Urobilinogen Ur Leukocyte Esterase Urine RBC Urine WBC Ur Epithelial Cells Urine Crystals Urine Bacteria Urine Mucus Ur Culture Indicated? Urine Glucose COVID-19 Source SARS-CoV-2 (PCR) Patient ABO/Rh Antibody Screen
--- NOTE | 2021-05-29 17:04 | PDOC.CMIN ---
- If Service Date Differs Date of service: 05/29/21 Time of Service: 17:04 Care Management Initial Assess REASON FOR HOSPITALIZATION:: Pyelo PAST MEDICAL HISTORY/PAST SURGICAL HISTORY:: Medical History: Anxious depression. Limited medical history available. PREVIOUS FUNCTIONAL STATUS/SOCIAL/FAMILY SUPPORTS:: Amrik is currently residing with her boyfriend, Ruslan in [facility]. She is from the [place], [place] area, and has services through [facility] including a therapist and help from [facility]. Amrik has a court appointed Guardian, Anjali Rees ([phone]), through [facility]. Per Anjali, she has been placed in a home in the [facility], but ran away and has been living with her boyfriend in [place] and [place], [place]. She is independent with her ADL's at baseline. She plans to start a job at the local [employer] this week. CURRENT FUNCTIONAL STATUS:: Amrik was lying in bed when CM met with her. She stated that she has been having pain, but her RN has been attentive. CM discussed her guardianship, which she stated it can be helpful. OANH wrote Anjali's phone number on the board in her room for Amrik to reach out to her. CM sent a Consent to treat. form to Anjali to sign as her guardian, and will notify her of Amrik's discharge. Per MD, she will have a CT tomorrow, and may be ready for discharge, depending on those results. CM will continue to follow. ADVANCE DIRECTIVES:: None on file. Guardianship paperwork faxed today, CM sent to access to be entered into her chart. Guardian: Anjali Rees, phone [phone]; fax [phone]. Has patient been provided with info about the portal/API?: Yes Did the patient sign up for the portal?: No CODE STATUS:: Full Code INSURANCE COVERAGE / FINANCIAL ISSUES:: [place] [employer] CURRENT HOME/COMMUNITY SERVICES/EQUIPMENT:: Services through [facility]. [employer]- Guardianship on file. PRIMARY CARE PHYSICIAN:: Loraine Kessler, [facility]. POTENTIAL DISCHARGE NEEDS:: Follow up appointments, notice to guardian of discharge. PATIENT/FAMILY EDUCATION NEEDS:: Review discharge instructions, discussion of self care needs including ask me three. ANTICIPATED BARRIERS TO DISCHARGE:: None identified. TRANSPORTATION:: Via private vehicle by a friend vs RCT PLAN:: Anticipate Amrik will return home when medically cleared by MD. Her boyfriend will drive her home via private vehicle. She will follow up with her PCP and discharge plan of care. CM will continue to follow.
[2021-05-29] MEDS: MORPHine 4 MG/ML SYR IVP (20:03)
[2021-05-29] MEDS: cefTRIAXone 1 GM/50 ML BAG IVPB (20:04)
[2021-05-29 20:37] VITALS: BP 127/79; PULSE 99; RESP 18; TEMP 37.8; O2SAT 98
--- NOTE | 2021-05-29 21:32 | DI.VRAD_ITS ---
PROCEDURE INFORMATION: Exam: CT Abdomen And Pelvis Without Contrast Exam date and time: 05/29/2021 4:15 PM Age: 26 years old Clinical indication: Fever; Abdominal pain; Generalized; Patient HX: Renal cortical cysts TECHNIQUE: Imaging protocol: Computed tomography of the abdomen and pelvis without contrast. Total images: 1219 Radiation optimization: All CT scans at this facility use at least one of these dose optimization techniques: automated exposure control; mA and/or kV adjustment per patient size (includes targeted exams where dose is matched to clinical indication); or iterative reconstruction. COMPARISON: US RENAL 05/29/2021 8:36 AM FINDINGS: Lungs: There is bibasilar subsegmental atelectasis. Liver: Normal. No mass. Gallbladder and bile ducts: Normal. No calcified stones. No ductal dilation. Pancreas: Normal. No ductal dilation. Spleen: Normal. No splenomegaly. Adrenal glands: Normal. No mass. Kidneys and ureters: There are simple appearing cysts in the right kidney. Stomach and bowel: Unremarkable. No obstruction. No mucosal thickening. Appendix: No evidence of appendicitis. Intraperitoneal space: Unremarkable. No free air. No significant fluid collection. Vasculature: Unremarkable. No abdominal aortic aneurysm. Lymph nodes: Unremarkable. No enlarged lymph nodes. Urinary bladder: Unremarkable as visualized. Reproductive: There is an IUD in the uterus. Bones/joints: Unremarkable. No acute fracture. Soft tissues: Unremarkable. IMPRESSION: No acute disease in abdomen or pelvis. Dictated and Authenticated by: Min Kuhn MD. Ordering:MORELIA Matthews MD
[2021-05-29 23:45] VITALS: BP 122/84; PULSE 99; RESP 20; TEMP 38.9; O2SAT 98
[2021-05-30] MEDS: Ketorolac 30 MG/ML VIAL IVP ×2 (00:20→07:36)
--- NOTE | 2021-05-30 00:24 | NUR.NOTE ---
Patient left the unit for Xray at 20:15 accompanied by LNAx2.
--- NOTE | 2021-05-30 00:27 | NUR.NOTE ---
Patient vomited x2 during the shift. MD informed and Promethezine 25mg ordered and patient made NPO.
[2021-05-30] MEDS: Normal Saline 1,000 ML 100 ML IV (04:10)
[2021-05-30 06:51] VITALS: BP 112/71; PULSE 91; RESP 20; TEMP 36.7; O2SAT 100
[2021-05-30 07:02] LABS: Abs Immature Grans 0.03 10^3/uL (0.0-0.06); Absolute Basophil Count 0.02 10^3/uL (0.0-0.2); Absolute Eosinophil Count 0.06 10^3/uL (0.0-0.7); Absolute Monocyte Count 0.98 10^3/uL (0.1-0.8); Absolute Neutrophil Count 5.67 10^3/uL (1.2-6.7); Basophils % 0.2; Eosinophils % 0.7; HCT 41.5 % (36.0-46.0); Immature Grans % 0.4; Lymphocytes % 18.2; MCH 29.2 pg (27.0-33.0); MCHC 31.3 % (32.0-36.0); MCV 93.3 fL (80-95); MPV 10.4 fL (8.0-11.0); Monocytes % 11.9; Neutrophils % 68.6; Nucleated RBC 0 %; Platelet Count 220 10^3/uL (130-400); RBC 4.45 10^6/uL (3.93-5.22); RDW 12.4 % (11.7-14.6); WBC 8.26 10^3/uL (4.4-10.8)
[2021-05-30 07:28] LABS: Anion Gap 11.6 mmol/L (3-11); BUN 5 mg/dL (7-18); CO2 21.4 mmol/L (21.0-32.0); CREATININE 0.9 mg/dL (0.55-1.02); Calcium 8.7 mg/dL (8.5-10.1); Chloride 110 mmol/L (98-107); Glucose 90 mg/dL (74-106); Potassium 4.3 mmol/L (3.5-5.1); Sodium 143 mmol/L (136-145)
[2021-05-30] MEDS: Omeprazole 20 MG CAPCR PO (07:29)
[2021-05-30] MEDS: Venlafaxine 50 MG TAB PO (07:29)
[2021-05-30] MEDS: Ondansetron 4 MG/2 ML VIAL IVP (07:36)
[2021-05-30] MEDS: Normal Saline Flush 10 ML SYR IVP (07:36)
--- NOTE | 2021-05-30 07:39 | W.PM.PROGNOT ---
Date of Service Date of service: 05/30/21 Time of Service: 07:39 Assessment and Plan Assessment and plan (1) Renal cyst, acquired, right: Status: Acute Assessment and plan: The renal cysts that were identified on ultrasound did not require any type of follow-up. She does not actually have stones in the kidney, so again no follow-up is needed. Unfortunately, a urine culture was never obtained on admission, so I do not have any recommendations regarding antibiotic usage. She does seem to be improving clinically with ceftriaxone at this time. Subjective Subjective Interval history since last seen: She is gradually improving with less discomfort. Her fevers are trending downwards. Exam Narrative Exam Narrative: Her vital signs are documented elsewhere I was able to review her noncontrast CT scan. The areas in the right kidney that were interpreted as stones on renal ultrasound are in fact not kidney stones. Objective Last Vital Signs Temp 36.7 C 05/30/21 06:51 Pulse 91 H 05/30/21 06:51 Resp 20 05/30/21 06:51 BP 112/71 05/30/21 06:51 Pulse Ox 100 05/30/21 06:51 Laboratory Results - last 24 hr 05/30/21 05/30/21 06:30 06:30 WBC 8.26 D RBC 4.45 Hgb 13.0 Hct 41.5 MCV 93.3 MCH 29.2 MCHC 31.3 L RDW 12.4 Plt Count 220 MPV 10.4 Immature Gran % 0.4 Neutrophils % 68.6 Lymphocytes % 18.2 Monocytes % 11.9 Eosinophils % 0.7 Basophils % 0.2 Nucleated RBC % 0 Absolute Neutrophils 5.67 Absolute Lymphocytes 1.50 Absolute Monocytes 0.98 H Absolute Eosinophils 0.06 Absolute Basophils 0.02 Sodium 143 Potassium 4.3 Chloride 110 H Carbon Dioxide 21.4 Anion Gap 11.6 H BUN 5 L Creatinine 0.9 Estimated GFR/1.73 m2 >= 60.00 Glucose 90 Calcium 8.7 Magnesium 2.0
[2021-05-30] MEDS: Acetaminophen 325 MG TAB 650 MG PO (09:26)
--- NOTE | 2021-05-30 09:26 | W.ED.FU ---
Patient's PCP Dr. Boss from [facility]. She notes that patient provides inaccurate information and that patient is under the guardianship of [facility], her guardian is Anjali Rees and can be reached at . She notes that the patient may return here seeking removal of her IUD which is in fact a Mirena IUD and that any treatment should be reviewed with her guardian. She will fax recent clinical record to us for reference.
--- NOTE | 2021-05-30 12:57 | DSE_ITS ---
Date of service: 05/30/21 Time of Service: 12:57 DS: Diagnosis Discharge Diagnosis (1) Renal cyst, acquired, right: Status: Acute Discharge Plan Disposition Patient Disposition: HOME Condition: Stable Discharge Details Reason For Visit: Pyelo Admit Date/Time: 05/28/21 20:28 Admit Provider: Masood Souza Attending Provider: Masood Souza Primary Care Provider: Unknown,Unknown Hospital Course Hospital Course: This is a 26 year old female, with a state appointed public guardian, who presented to the emergency department at [facility] with c/o fever, chills, nausea and vomiting that started 24 hours prior to arrival. She did not notify the staff or admitting that she was a guardian of the state. She also reported that she was recently diagnosed with a spontaneous so an abdominal work up and inpatient services director consult was obtained. Her work up in the ED showed a white count of 18, K 3.2, temp was 39.3, and a urine sample, which was unfortunately contaminated and not cultured accordingly. She was not having c/o dysuria or frequency but d/t some vague back pain so was ultimately admitted with a diagnosis of pyelonephritis and started on ceftriaxone 2 gm IVPB. A urine culture was sent during her hospitalization after this was discovered, it was obtained after receiving 2 doses of IV ceftriaxone and resolution of her symptoms and is still pending at discharge. Her potassium was replaced and up to 4.3 on day of discharge. Her white count normalized and she was hemodynamically stable with no further fevers. She was tolerating po and voicing no new c/o and improvement in her symptoms. She did have a urology consult for findings of renal cysts on imaging, thought to be co-incidental. There is no follow up needed as they have essentially no malignant potential and do not require any specific follow-up or repeat imaging. Per inpatient services director consultation reports from ED consultation: She reported being diagnosed by u/s at [facility] on 05/20/2021 with a missed AB at 9 weeks estimated gestational age. Patient states she was offered a D&C but declined and had intravaginal misoprostol which resulted in the passage of tissue 24 hours later. Is unclear to me if she received prophylactic doxycycline at the time of the SAB. Shortly thereafter a ParaGard IUD was inserted. A urine and serum test was negative at the time of insertion. She states was then recently seen for a IUD string check and strings were not visible. She reports a pelvic ultrasound being performed which showed the IUD in the correct position. Her pelvic exam was not consistent with septic or PID. If there were endometritis she would be experiencing uterine bleeding which she was not. With bimanual exam benign and no evidence of intrauterine infection pelvic inflammatory disease was less likely cause of her fever and symptoms. It was noted that a strep test was also performed in the ED and she was posit ijeoma, this should be covered by the ceftriaxone. She will be discharged on cefpodoxime to complete 5 more days for a total of 7 days, which should cover possible urinary source as well. patient stable for discharge to home. guardian and pcp office notified. discharge discussed with Dr Mon. Home Meds and New Rx's Prescriptions: New cefpodoxime 200 mg tablet 200 mg PO BID Qty: 10 RF: 0 Continued venlafaxine 50 mg Tablet 50 mg PO DAILY RF: 0 Discharge Instructions Instructions: Strep Throat (DC) Additional Instructions: You are being treated for both strep throat and a suspected urinary infection. your blood cultures have been negative, your urine culture still pending. your CT scan showed no concerns regarding kidney or bladder infection. Your ultrasound showed 3 benign cortical cysts in the right kidney, they have essentially no malignant potential and do not require any specific follow-up or repeat imaging. you can return to work next Saturday, June 05, 2021. Stand Alone Forms: Nursing Discharge Form Referrals: Loraine Doll [ NON-[facility] STAFF PHYSICIAN] - 06/06/21 4:40 pm (one week or sooner for new or worsening issues. ) Unknown,Unknown [Primary Care Provider] - Activity:: Activity as Tolerated Equipment/Supplies:: No Equipment Needed Diet:: As Tolerated Discharge Orders Discharge Orders: Discharge Order (Routine); Ordered 05/30/21 Ordered By: Kathrin Bruner Discharge Data Discharge Date/Time-TO BE ENTERED AT DEPARTURE: 05/30/21 16:04 DS: Summary Time Spent with Patient providing and/or coordinating discharge services: Greater than 30 minutes Status at Discharge Functional status at discharge: independent ambulation Overall status at discharge: patient is progressing back to baseline Mental Status: mental status grossly normal Speech and Movement: speech and movement normal Mood: congruent mood Affect: normal affect Exam Const General: cooperative, comfortable and no acute distress Nutritional Appearance: overweight Orientation: alert, awake and oriented x3 HENMT Head: normal to inspection, normocephalic and atraumatic Mouth: oral mucosae normal Resp Effort & Inspection: normal respiratory effort Auscultation: clear to auscultation bilaterally Cardio Rate: regular rate Rhythm: regular rhythm GI Palpation: soft Auscultation: normal bowel sounds Skin General skin exam: no rashes or lesions noted Neuro General: patient alert, patient awake and patient oriented x3 Extrem General: normal to inspection Psych Mental Status: mental status grossly normal Speech and Movement: speech and movement normal Mood: congruent mood Affect: normal affect DS: Data Vitals/I&O Vitals and I&O: Vital Signs Temperature 36.7 C 05/30/21 06:51 Temperature Source Tympanic 05/30/21 06:51 Pulse 91 H 05/30/21 06:51 Pulse Rhythm Regular 05/30/21 08:00 Respiratory Rate 20 05/30/21 06:51 Respiratory Effort Non-Labored 05/30/21 08:00 Respiratory Depth Normal 05/30/21 08:00 Respiratory Pattern Normal 05/30/21 08:00 Blood Pressure 112/71 05/30/21 06:51 Blood Pressure Position Sitting 05/28/21 17:29 Pulse Oximetry 100 05/30/21 06:51 Oxygen Delivery Method Room Air 05/30/21 06:51 Oxygen Flow Rate 0 05/30/21 06:51 Pain Level 2 05/30/21 09:26 Comment 05/29/21 20:37 Intake & Output 05/29/21 05/30/21 05/30/21 23:59 11:59 23:59 Intake Total 1680 / 3742.5 1051 / 1051 Output Total 1000 / 1000 Balance 1680 / 2442.5 51 / 51 Intake: IV 1050 / 3112.5 1051 / 1051 Oral 630 / 630 Output: Urine 1000 / 1000 Other: Urine Color Yellow Yellow Urine Appearance Clear Clear Urine Odor None None Comment patient voids independently in the bathroom Data Completed and Pending Labs on day of discharge: Labs from last 24 hours 05/30/21 05/30/21 06:30 06:30 WBC 8.26 D RBC 4.45 Hgb 13.0 Hct 41.5 MCV 93.3 MCH 29.2 MCHC 31.3 L RDW 12.4 Plt Count 220 MPV 10.4 Immature Gran % 0.4 Neutrophils % 68.6 Lymphocytes % 18.2 Monocytes % 11.9 Eosinophils % 0.7 Basophils % 0.2 Nucleated RBC % 0 Absolute Neutrophils 5.67 Absolute Lymphocytes 1.50 Absolute Monocytes 0.98 H Absolute Eosinophils 0.06 Absolute Basophils 0.02 Sodium 143 Potassium 4.3 Chloride 110 H Carbon Dioxide 21.4 Anion Gap 11.6 H BUN 5 L Creatinine 0.9 Estimated GFR/1.73 m2 >= 60.00 Glucose 90 Calcium 8.7 Magnesium 2.0 05/30/21 10:20 Urine - Clean Catch Urine Culture - Pending Preliminary micro results at discharge 05/30/21 10:20 Urine Culture - Pending Urine - Clean Catch 05/28/21 18:58 Blood Culture - Preliminary Blood NO GROWTH 24 HOURS 05/28/21 18:20 Blood Culture - Preliminary Blood NO GROWTH 24 HOURS [facility] 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 Improved symptoms with venlafaxine History of 1 spontaneous 05/20/2021. Rx with vaginal misoprostol. No complications. Social History Smoking/Tobacco Use Status: Former Tobacco Use Smoking risk assessment performed?: Yes Alcohol Intake: never Substance use type: does not use Household members: significant other and other Details: Ruslan x1.5 years Number of Children: 0 current occupation: Unemployed. Begins [employer] 06/01/2021 Do you feel safe at home: Yes Do you feel safe in your relationship?: Yes Female Reproductive History Menstrual control method: copper IUCD (Placed 05/2021) History History 1 Para 0 Hx # Term Pregnancies Multiple births Hx # Pregnancies Ectopic pregnancies AB induced Hx Number of Living Children 0 AB spontaneous 1
--- NOTE | 2021-05-30 18:09 | PDOC.CMDIS ---
- If Service Date Differs Date of service: 05/30/21 Time of Service: 18:09 LACE Index Scoring Tool - Questions: Length of Stay (in days): 2 Acuity (Admit via E.D.?): Yes E.D. Visits: 1 - Answers: Total Score: 6 Risk of Readmission: Low Risk Care Management Discharge Reason for Hospitalization: Py[place] Discharge Plan: Amrik will return home today with no new services. CM informed her Guardian, Anjali Rees of her discharge, who also spoke to the provider regarding her care. Amrik's boyfriend will drive her home when ready via private vehicle. CM wrote a letter advocating for Amrik to begin work on Saturday, as requested by the provider. Amrik will follow up with her PCP and discharge plan of care. She is happy to be going home. Patient/Family Education Needs: Review discharge instructions regarding activity levels and medications, discussion of self care needs including ask me three. - MH Services (Omit if N/A) Current MH Services: Other ([facility], [facility])
== END 2021-05-30 16:04 | disposition home or self-care (01) ==
LOC: ER 17:21 → MS 21:17
PROVIDERS: Nurse Practitioner Family; Admitting Provider General Practice; Emergency Provider Physician Assistant; Visit Provider General Practice
DX: N10 Acute pyelonephritis (principal); M54.9 Dorsalgia, unspecified; E87.6 Hypokalemia; N28.1 Cyst of kidney, acquired; F41.8 Other specified anxiety disorders; Z87.891 Personal history of nicotine dependence; Z20.822 Contact with and (suspected) exposure to COVID-19
CPT/HCPCS: 36415; 76770; 80048; 80053; 85027; 86850; 86900; 86901; 87040; 87635; 87880; 96361; 96365; 96375; 99291; 71045; 74176; 81003; 81015; 83605; 83735; 84702; 85025; 87081; 87086; 99222; 99226; 99239; G0378; J0131; J0696; J1885; J2270; J2405; J2765; J3480